=== PATIENT | female | born 1965 | race Caucasian/White ===

== ENCOUNTER 2017-12-14 16:27 | Emergency (ER) | payer OTHER, MEDICAID ==
[~2017-12-14] VITALS: Ht 165.1 cm; Wt 146.5 kg
[2017-12-14] MEDS ORDERED: BENICAR 5 MG5 MG PO (16:50)
[2017-12-14] MEDS ORDERED: HYDROCHLOROTHIA25 M2 PO (16:50)
[2017-12-14] MEDS ORDERED: GLUCOPHAGE XR750 MG PO (16:51)
[2017-12-14] MEDS ORDERED: BYSTOLIC20 MG PO (16:51)
[2017-12-14] MEDS ORDERED: LANTUS100 UNIT/M SUBQ (16:52)
[2017-12-14] MEDS ORDERED: HUMALOG100 UNIT/2 INJECTION (16:52)
[2017-12-14] MEDS ORDERED: TRAMADOL 50 MG50 MG PO (16:53)
[2017-12-14] MEDS ORDERED: FARXIGA10 MG PO (16:53)
[2017-12-14] MEDS ORDERED: NEURONTIN 400M400 M2 PO (16:54)
[2017-12-14] MEDS ORDERED: LEVAQUIN 250 M250 MG PO (16:54)
[2017-12-14] MEDS ORDERED: CLEOCIN HCL150 MG PO (17:44)
[2017-12-14 17:52] VITALS: BP 188/102
== END 2017-12-14 17:54 | disposition home or self-care (01) ==
LOC: M.ERS 16:27
DX: L03.114 Cellulitis of left upper limb (principal); I10 Essential (primary) hypertension; E11.9 Type 2 diabetes mellitus without complications; E03.9 Hypothyroidism, unspecified; Z88.1 Allergy status to other antibiotic agents; Z79.4 Long term (current) use of insulin